=== PATIENT | male | born 1985 | race Caucasian/White ===

== ENCOUNTER 2023-05-22 08:50 | Emergency (ER) | payer BC, OTHER ==
[~2023-05-22] VITALS: Ht 177.8 cm; Wt 126.7 kg
[2023-05-22] MEDS ORDERED: FLON1SPR NARES (09:12)
[2023-05-22] MEDS ORDERED: CETI5SOL3 PO (09:12)
[2023-05-22] MEDS ORDERED: NEUR100C PO (12:36)
[2023-05-22 12:44] VITALS: BP 157/92; TEMP 98.3; O2SAT 96
== END 2023-05-22 12:51 | disposition home or self-care (01) ==
LOC: M ED 08:50
DX: G56.02 Carpal tunnel syndrome, left upper limb (principal); G56.22 Lesion of ulnar nerve, left upper limb

== ENCOUNTER → 2023-10-28 | Outpatient (REF) | payer OTHER ==
[~2023-10-28] MED LIST: CETI5SOL3 PO; FLON1SPR NARES; NEUR100C PO
== END ==
LOC: M SFHCDERM 14:41
PROVIDERS: ATTEND Physician Assistant
DX: D22.5 Melanocytic nevi of trunk (principal)